=== PATIENT | male | born 1945 | race Caucasian/White ===

== ENCOUNTER → 2017-03-06 | Outpatient (CLI) | payer OTHER ==
[~2017-03-06] MED LIST: ACTOS PO; ALLOPURINOL300 MG PO; ASPIRIN EC81 M1 PO; ASPIRIN81 M1 PO; AVODART0.5 MG PO; AZOR 10-40 MG1 UDTAB PO; COZAAR PO; CRESTOR PO; DESYREL50 MG PO; DYNACIRC CR10 MG PO; FENOFIBRATE160 MG PO; FLOMAX0.4 M1 PO; FLOMAX0.4 MG PO; HYDRALAZINE HC100 MG PO; HYDROCHLOROTHIA25 MG PO; HYZAAR PO; IBUPROFEN400 MG PO; INHALER; INSULIN DETEMIR; KEFLEX PO; LEVAQUIN750 MG PO; LOPRESSOR PO; LOVAZA1 G PO; METFORMIN HCL500 M1 PO; METFORMIN PO; MOBIC PO; NATEGLINIDE120 MG PO; NIACIN500 M1 PO; OMEGA-31000 M1 PO; ONGLYZA5 MG PO; PERCOCET 10/3251 TAB PO; PRAVASTATIN SOD40 MG PO; SERTRALINE HCL50 M1 PO; TRIBENZOR 40-11 EAC1 PO; TRICOR PO; ULORIC40 MG PO; VICODIN PO; VICTOZA0.6 MG/0.1 SQ; WELCHOL625 M1 PO; WELCHOL625 MG PO; ZETIA PO
--- NOTE | ~2017-03-06 | MR113 ---
[facility] A Service of [facility] & [facility] RADIOLOGY TEXT RESULTS PATIENT: WERNER FRASER LOCATION: [facility] : 47 UNIT #: [id number] AGE: [address]: Davis Champagne MD SEX: M ORDER DR: [id number] [address] [address] [id number] O MR#: [id number] Acc #: [id number] NAME: WERNER FRASER : 1945 SEX: M STUDY DATE/TIME: 03/06/2017 11:39 UNIT: [facility] ROOM: STUDY DESCRIPTION: MR Lumbar Wo Contrast Attending Physician: Davis Champagne M.D. Referring Physician: Davis Champagne M.D. Ordering Physician: Davis Champagne M.D. Primary Care Physician: Concha Rhoades M.D. MRI CENTER REPORT This report is preliminary unless electronic signature is present. EXAM MRI of the lumbar spine without contrast, dated 03/06/2017. COMPARISON MRI lumbar spine without contrast dated 05/23/2011. HISTORY Low back pain with bilateral radiculopathy since 2009. It is progressively worsening the last year with some stiffness. TECHNIQUE Multisequence, multiplanar imaging of the lumbar spine was obtained without contrast. FINDINGS Vertebral body heights and alignment are preserved. Degenerative disc disease is at multiple levels with edematous endplate changes at L3-4, and to a lesser degree, at L4-5. Conus terminates at probably T11-12, and it is not fully included in the current study. Visualized nerve roots of the cauda equina do not demonstrate any significant enlargement or conglomeration. Thecal sac is progressively narrowed from the level of L2-3 inferiorly with prominent epidural fat, degenerative disc disease, ligamentum flavum and facet changes contributing to the canal stenosis. It appears to be predominantly stable. The edematous endplate changes noted, particularly at L3-4, is relatively worse when compared to the previous study from 6 years ago. Pre- and paravertebral soft tissues demonstrate evidence of a graft in the region of the infrarenal abdominal aortic aneurysm. Correlate with history. L1-2: Concentric disc bulge with mild to moderate bilateral facet hypertrophic changes and ligamentum flavum thickening with mild to moderate canal stenosis. No significant neural foraminal narrowing. [facility]. [facility] A Service of [facility] & [facility] RADIOLOGY TEXT RESULTS PATIENT: [facility]ERN[facility] FRAS[id number] [birth year] UNIT #: [id number] AGE: [address]: Davis Champagne MD SEX: M ORDER DR: L2-3: Concentric disc bulge with severe bilateral facet hypertrophic changes and ligamentum flavum thickening. There is moderate canal stenosis without any significant neural foraminal narrowing. L3-4: Disc osteophyte complex, which is most prominent in the center. Severe left and moderate right facet hypertrophic changes are noted with mild to moderate right and moderate to severe left neural foraminal narrowing with mild to moderate bilateral lateral recess stenosis and moderate to severe canal stenosis. Relatively stable. L4-5: Disc osteophyte complex which is asymmetrically prominent in bilateral foraminal to extraforaminal regions particularly in the right. There are probably broad-based protrusions associated with it on both sides, particularly in the right foraminal region extending towards extraforaminal region. Severe bilateral facet hypertrophic changes are noted with joint fluid in the left and a tiny [id number]-3-mm increased T2 signal within the left ligamentum flavum extending to the adjacent left lamina, likely a subligamentous synovial cyst/inflammatory tissue. Severe canal stenosis is seen with moderate bilateral lateral recess stenosis, moderate to severe right and mild to moderate left neural foraminal narrowing. Relatively stable. L5-S1: Concentric disc bulge with mild inferior bilateral neural foraminal narrowing and mild bilateral facet changes, relatively stable. IMPRESSION 1. Degenerative changes are noted at multiple levels, relatively worst at L4-5 as described above. Given the differences in slice selection, it has not significantly worsened in the last 6 years. 2. Interval new edematous endplate changes are at L3-4 and, to a lesser degree, at L4-5. 3. Patient has had interval surgery of the infrarenal abdominal aortic aneurysm with graft. Correlate with history. 4. Refer above to the detailed dictation at each level describing the degenerative changes. Dictated by... Wilma Caldera M.D. THIS IS AN ELECTRONICALLY VERIFIED REPORT Wilma Caldera M.D. at 03/07/2017 4:27 PM CPR/js TD: 03/07/2017 11:09 JOB #: [id number] [facility]. [facility] A Service of [facility] & [facility] RADIOLOGY TEXT RESULTS PATIENT: WERNER FRASER LOCATION: [facility] : 47 UNIT #: [id number] AGE: [address]: Davis Champagne MD SEX: M ORDER DR: MRI CENTER REPORT Page 1 of 1
== END | disposition home or self-care (01) ==
LOC: SMRI 08:45
DX: M48.06 Spinal stenosis, lumbar region (principal); M47.896 Other spondylosis, lumbar region; Z98.890 Other specified postprocedural states
CPT/HCPCS: 72148